=== PATIENT | female | born 1970 | race Caucasian/White ===

== ENCOUNTER 2020-03-25 04:10 | Emergency (ER) | payer SELFPAY ==
[2020-03-25 05:03] VITALS: TEMP 98; BMI 33.7
[2020-03-25 06:18] LABS: BASO % 1.5 % (0-2.0); EOS % 2.9 % (0-4.5); HEMATOCRIT 41.4 % (32.4-45.2); HEMOGLOBIN 14.5 GM/dL (10.7-15.3); LYMPH % 20.1 % (8-40); MCH 29.4 pg (25.7-33.7); MCHC 34.9 g/dl (32.0-36.0); MEAN CELL VOLUME 84.1 fl (80-96); MEAN PLT VOLUME 9.9 fl (7.5-11.1); MONO % 5.3 % (3.8-10.2); NEUT % 70.2 % (42.8-82.8); PLATELET COUNT 261 K/MM3 (134-434); RBC 4.92 M/mm3 (3.60-5.2); RDW 13.1 % (11.6-15.6); WHITE BLOOD COUNT 8.3 K/mm3 (4.0-10.0)
[2020-03-25 06:37] LABS: CHLORIDE 110 mmol/L (98-107); SODIUM 138 mmol/L (136-145)
[2020-03-25 06:39] LABS: CALCIUM 9.1 mg/dL (8.5-10.1)
[2020-03-25 06:40] LABS: ALBUMIN 3.8 g/dl (3.4-5.0); ANION GAP 6 MMOL/L (8-16); BLOOD UREA NITROGEN 10.8 mg/dL (7-18); CO2 22 mmol/L (21-32); GLUCOSE,RANDOM 112 mg/dL (74-106); LIPASE 109 U/L (73-393)
[2020-03-25 06:43] LABS: CREATININE 0.6 mg/dL (0.55-1.3); SGOT/AST 15 U/L (15-37); SGPT/ALT 30 U/L (13-61)
[2020-03-25 06:44] LABS: BILIRUBIN,TOTAL 0.5 mg/dL (0.2-1)
[2020-03-25 06:45] LABS: TOT PROT 7.7 g/dl (6.4-8.2)
[2020-03-25 06:46] LABS: ALK PHOS 81 U/L (45-117)
[2020-03-25 10:25] LABS: PH,URINE 5.5 (5.0-8.0); URINE APPEARANCE CLEAR; URINE BILIRUBIN NEGATIVE (NEGATIVE); URINE COLOR YELLOW; URINE GLUCOSE (UA) NEGATIVE (NEGATIVE); URINE KETONE NEGATIVE (NEGATIVE); URINE LEUK ESTERASE NEGATIVE (NEGATIVE); URINE NITRITE NEGATIVE (NEGATIVE); URINE PROTEIN NEGATIVE (NEGATIVE); URINE UROBILINOGEN 0.2 mg/dL (0.2-1.0)
[2020-03-25 10:26] LABS: EPI CELLS 15 /uL (0-25.1); HYALINE CASTS 0 /uL (0-3.1); URINE BACTERIA 176 /uL (0-1359); URINE RBC 5 /uL (0-23.9); URINE WBC 11 /uL (0-25.8)
[2020-03-25 11:06] VITALS: BP 117/63; PULSE 68
== END 2020-03-25 11:07 | disposition home or self-care (01) ==
LOC: EDBD 04:10 → JER 04:10
DX: N83.291 Other ovarian cyst, right side (principal)
CPT/HCPCS: 36415; 74177-TC; 80053; 81003; 83690; 84484; 84703; 85025; 87086; 93005; 93010; 99285-25; Q9967